=== PATIENT | female | born 1995 | race Caucasian/White ===

== ENCOUNTER 2023-01-13 15:11 | Outpatient (REF) | payer BC, SELFPAY ==
--- NOTE | 2023-01-13 13:40 | ENDO_PTH ---
PATIENT: Sujata Salinas LOC: [facility] U#:[id number] AGE/SX: 27/F ROOM: RE01/13/[address]: Avis Trinidad MD : 1995 BED: DIS: 01/13/2023 SPEC #: [id number] RECD: 01/13/23 17:07 STATUS: ANITA REHany #: [id number] MK: 01/13/23 13:[address]: Avis Trinidad DEPT: Surgical Specimen RECD BY: Janeth Camara Tissues: 1 - ENDOCERVICAL BX/CURRETTE Procedures: GROSS AND MICRO LEVEL 4 Comments: [id number]
== END 2023-01-13 15:12 | disposition home or self-care (01) ==
LOC: LBN 15:11
PROVIDERS: Visit Provider Obstetrics & Gynecology
DX: N88.8 Other specified noninflammatory disorders of cervix uteri (principal); R87.611 Atypical squamous cells cannot exclude high grade squamous intraepithelial lesion on cytologic smear of cervix (ASC-H)
CPT/HCPCS: 88305

== ENCOUNTER 2023-09-21 13:57 | Outpatient (REF) | payer BC, SELFPAY ==
[2023-09-21 19:42] LABS: Abs Immature Grans 0.02 10^3/uL (0.0-0.06); Absolute Eosinophil Count 0.67 10^3/uL (0.0-0.7); Absolute Lymphocyte Count 2.61 10^3/uL (1.2-3.4); Absolute Monocyte Count 0.61 10^3/uL (0.1-0.8); Absolute Neutrophil Count 5.43 10^3/uL (1.2-6.7); Basophils % 1.1; Eosinophils % 7.1; HCT 40.5 % (36.0-46.0); Immature Grans % 0.2; Lymphocytes % 27.6; MCH 29.6 pg (27.0-33.0); MCHC 34.6 % (32.0-36.0); MCV 86 fL (80-95); Monocytes % 6.5; Neutrophils % 57.5; Platelet Count 314 10^3/uL (130-400); RBC 4.73 10^6/uL (3.93-5.22); RDW 12.3 % (11.7-14.6); RDW-SD 38.5 fL; WBC 9.44 10^3/uL (4.4-10.8)
[2023-09-21 20:26] LABS: ALT 23 U/L (14-59); AST 11 U/L (15-37); Albumin 4.4 g/dL (3.4-5.0); Alkaline Phosphatase 51 U/L (46-116); Anion Gap 8.8 mmol/L (3-11); BUN 10 mg/dL (7-18); Bilirubin, Total 0.5 mg/dL (0.2-1.0); CO2 26.2 mmol/L (21.0-32.0); CREATININE 0.8 mg/dL (0.55-1.02); Calculated LDL 148 mg/dL (<100); Chloride 102 mmol/L (98-107); Cholesterol 247 mg/dL (<200); Glucose 98 mg/dL (74-106); HDL Cholesterol 41 mg/dL (40-60); Potassium 4.4 mmol/L (3.5-5.1); Sodium 137 mmol/L (136-145); TSH (W/Ref FT4) 1.74 uIU/mL (0.36-3.74); Total Protein 7.7 g/dL (6.4-8.2); Triglyceride 293 mg/dL (<150)
== END 2023-09-21 13:58 | disposition home or self-care (01) ==
LOC: NCHCN 13:57
PROVIDERS: Visit Provider Nurse Practitioner Family
DX: Z13.228 Encounter for screening for other metabolic disorders (principal); Z86.39 Personal history of other endocrine, nutritional and metabolic disease; E04.2 Nontoxic multinodular goiter; R59.0 Localized enlarged lymph nodes; Z13.220 Encounter for screening for lipoid disorders
CPT/HCPCS: 80053; 80061; 84443; 85025

== ENCOUNTER → 2023-09-28 00:43 | Outpatient (CLI) | payer BC, SELFPAY ==
--- NOTE | 2023-09-28 | DI.RAD_ITS ---
Exam(s) XR HIP LT COMPLETE AP PELVIS EXAM: XR HIP LT COMPLETE AP PELVIS CLINICAL HISTORY: M25.552,M54.32,M53.3; Pain left hip,left sciatica,Sacroiliac JNT pain bilat. TECHNIQUE: 2D digital imaging was performed. Two views. COMPARISON: No exams were available for comparison FINDINGS: BONES: No acute fracture is present. No bony destructive lesion is seen. JOINTS: No dislocation present. Minimal spurring at the superior acetabula. SI joints appear adam l. SOFT TISSUE: Normal. IMPRESSION: Unremarkable radiographs of the left hip. DATA REPOSITORY: RADIATION DOSE DELIVERED:
== END ==
PROVIDERS: Visit Provider Nurse Practitioner Family
DX: M25.552 Pain in left hip (principal); M54.32 Sciatica, left side
CPT/HCPCS: 73502

== ENCOUNTER 2024-04-12 16:10 | Outpatient (REF) | payer BC, SELFPAY ==
[2024-04-12 20:07] LABS: Hemoglobin A1C 5.6 % (<5.7)
[2024-04-12 20:16] LABS: TSH (W/Ref FT4) 2.63 uIU/mL (0.36-3.74)
[2024-04-13 18:26] LABS: Estradiol 73 pg/mL (See Note)
[2024-04-13 18:39] LABS: FSH 7.7 mIU/mL (See Note); Prolactin 6.3 ng/mL (See Note)
== END 2024-04-12 16:11 | disposition home or self-care (01) ==
LOC: NCHCN 16:10
PROVIDERS: Visit Provider Nurse Practitioner Family
DX: E04.2 Nontoxic multinodular goiter (principal); N91.2 Amenorrhea, unspecified
CPT/HCPCS: 82670; 83001; 83036; 84146; 84443

== ENCOUNTER 2024-05-24 15:23 | Outpatient (REF) | payer BC, SELFPAY ==
--- NOTE | 2024-05-24 14:40 | PAPFT_PTH ---
PATIENT: Sujata Salinas LOC: [facility] U#:[id number] AGE/SX: 28/F ROOM: RE05/24/[address]: Giovanna Johnson NP : 1995 BED: DIS: 05/24/2024 SPEC #: [id number] RECD: 05/24/24 17:17 STATUS: ANITA REQ #: [id number] MK: 05/24/24 14:[address]: Giovanna Johnson NP DEPT: [facility] Cytology RECD BY: Janeth Camara ENTERED: 05/24/24 17:17 SP TYPE: PAPFT OTHR DR: Arianne Gale Tissues: 1 - CX/ENDOCX FOR PAP SMEARS Procedures: PAP THIN PREP/[facility] Screening Comments: [id number] (CHLAMYDIA/GC)
[2024-05-25 12:45] LABS: Chlamydia Result Negative (Negative); GC Result Negative (Negative)
== END 2024-05-24 15:24 | disposition home or self-care (01) ==
LOC: LBN 15:23
PROVIDERS: PCP Nurse Practitioner Family; Visit Provider Nurse Practitioner Women's Health
DX: Z12.4 Encounter for screening for malignant neoplasm of cervix; R87.613 High grade squamous intraepithelial lesion on cytologic smear of cervix (HGSIL)
CPT/HCPCS: 87491; 87591; 88142

== ENCOUNTER 2024-07-05 17:23 | Outpatient (REF) | payer BC, SELFPAY ==
--- NOTE | 2024-07-05 15:30 | ENDO_PTH ---
PATIENT: Sujata Salinas LOC: [facility] U#:[id number] AGE/SX: 28/F ROOM: RE07/05/[address]: Melany Corbett DO : 1995 BED: DIS: 07/05/2024 SPEC #: [id number] RECD: 07/05/24 18:18 STATUS: SOUTiffanie REQ #: [id number] MK: 07/05/24 15:[address]: Melany Corbett DEPT: Surgical Specimen RECD BY: Janeth Camara ENTERED: 07/05/24 18:19 SP TYPE: Endo OTHR DR: Arianne Gale Tissues: 1 - ENDOCERVICAL BX/CURRETTE 2 - CERVICAL BIOPSY Procedures: GROSS AND MICRO LEVEL 4 Comments: [id number]
== END 2024-07-05 17:24 | disposition home or self-care (01) ==
LOC: LBN 17:23
PROVIDERS: PCP Nurse Practitioner Family; Visit Provider Obstetrics & Gynecology
DX: N83.292 Other ovarian cyst, left side (principal)
CPT/HCPCS: 88305